=== PATIENT | female | born 1960 | race Caucasian/White ===

== ENCOUNTER → 2020-02-19 11:56 | Outpatient (BNVA) | payer MEDICAID, SELFPAY | PROVIDERS: Family Provider Internal Medicine; PCP Internal Medicine; Visit Provider Family Medicine | DX: J30.9 Allergic rhinitis, unspecified (principal); J44.9 Chronic obstructive pulmonary disease, unspecified; K21.9 Gastro-esophageal reflux disease without esophagitis; E11.9 Type 2 diabetes mellitus without complications; F31.30 Bipolar disorder, current episode depressed, mild or moderate severity, unspecified; I11.0 Hypertensive heart disease with heart failure; I50.9 Heart failure, unspecified; Z86.73 Personal history of transient ischemic attack (TIA), and cerebral infarction without residual deficits; G47.00 Insomnia, unspecified; I25.10 Atherosclerotic heart disease of native coronary artery without angina pectoris; G89.4 Chronic pain syndrome; Z87.81 Personal history of (healed) traumatic fracture; M25.552 Pain in left hip | CPT/HCPCS: 80053; 80061; 83036; 85025 ==

== ENCOUNTER → 2020-02-24 08:56 | Outpatient (BNVA) | payer MEDICAID, SELFPAY | PROVIDERS: Family Provider Internal Medicine; PCP Family Medicine; Referring Provider Family Medicine; Visit Provider Anesthesiology Pain Medicine | DX: G89.4 Chronic pain syndrome (principal); M54.9 Dorsalgia, unspecified; M25.552 Pain in left hip; F41.9 Anxiety disorder, unspecified; F31.31 Bipolar disorder, current episode depressed, mild; F17.210 Nicotine dependence, cigarettes, uncomplicated | CPT/HCPCS: 99203; 99204 ==

== ENCOUNTER → 2020-03-18 10:47 | Outpatient (BNVA) | payer MEDICAID, SELFPAY | PROVIDERS: Family Provider Internal Medicine; PCP Family Medicine; Visit Provider Emergency Medicine | DX: R05 Cough (principal); R06.02 Shortness of breath; J44.1 Chronic obstructive pulmonary disease with (acute) exacerbation | CPT/HCPCS: 71046; 80048; 83880; 85025 ==

== ENCOUNTER → 2020-04-22 09:35 | Outpatient (BNVA) | payer MEDICAID, SELFPAY | PROVIDERS: Family Provider Internal Medicine; PCP Family Medicine; Visit Provider Family Medicine | DX: N39.0 Urinary tract infection, site not specified (principal); E11.59 Type 2 diabetes mellitus with other circulatory complications; Z79.4 Long term (current) use of insulin; F32.9 Major depressive disorder, single episode, unspecified; I10 Essential (primary) hypertension; B37.9 Candidiasis, unspecified; B00.9 Herpesviral infection, unspecified; M54.9 Dorsalgia, unspecified; R30.0 Dysuria; M62.830 Muscle spasm of back | CPT/HCPCS: 80053; 81000; 83036 ==

== ENCOUNTER → 2020-04-24 09:33 | Outpatient (BNVA) | payer MEDICAID, SELFPAY | PROVIDERS: Family Provider Internal Medicine; PCP Family Medicine; Referring Provider Family Medicine; Visit Provider Orthopaedic Surgery | DX: M25.552 Pain in left hip (principal) | CPT/HCPCS: 73502 ==

== ENCOUNTER 2020-05-06 10:23 | Outpatient (CLI) | payer MEDICAID, SELFPAY ==
--- NOTE | 2020-05-06 | MR_ITS ---
Jessie Beach 1960 MRI LEFT HIP NONCONTRAST TECHNIQUE: Axial T1, axial T2 fat sat, coronal T1, coronal STIR, sagittal T2 fat sat, sagittal T1, and sagittal T2 fat sat, of both hips. CLINICAL INFORMATION: Left hip pain COMPARISON: Radiograph April 24, 2020, MRI March 16, 2017 FINDINGS: Mild degenerative arthritis both hips with joint space narrowing. No significant edema in the left femoral head or acetabulum. No evidence of avascular necrosis. Normal greater trochanter. Proximal femoral shafts are normal in appearance bilaterally. Normal bone marrow signal in the lower lumbar spine and sacrum. Visualized sacroiliac joints are normal. Normal pubic rami. Normal visualized soft tissues. Normal partially visualized rectosigmoid colon. No inguinal lymphadenopathy. Postoperative changes fusion hardware lower lumbar spine. IMPRESSION: 1. Mild degenerative arthritis both hips with joint space narrowing. No evidence of avascular necrosis or edema in the left femoral head or neck. 2. Left hip is otherwise normal in appearance. 3. Normal bone marrow signal in the lower lumbar spine and sacrum. 4. Normal pubic rami. [facility]
== END 2020-05-06 10:24 | disposition home or self-care (01) ==
LOC: RADWPI 10:26
PROVIDERS: Family Provider Family Medicine; PCP Family Medicine; Visit Provider Orthopaedic Surgery
DX: M25.552 Pain in left hip (principal); M16.0 Bilateral primary osteoarthritis of hip
CPT/HCPCS: 73721

== ENCOUNTER → 2020-05-07 09:40 | Outpatient (BNVA) | payer MEDICAID, SELFPAY | PROVIDERS: Family Provider Family Medicine; PCP Family Medicine; Visit Provider Anesthesiology Pain Medicine | DX: M54.9 Dorsalgia, unspecified (principal); M25.552 Pain in left hip; F17.210 Nicotine dependence, cigarettes, uncomplicated | CPT/HCPCS: 99213 ==

== ENCOUNTER → 2020-06-05 12:52 | Outpatient (BNVA) | payer MEDICAID, SELFPAY | PROVIDERS: Family Provider Family Medicine; PCP Family Medicine; Visit Provider Anesthesiology Pain Medicine | DX: G89.29 Other chronic pain (principal); M25.561 Pain in right knee; M25.562 Pain in left knee; M25.552 Pain in left hip; M54.9 Dorsalgia, unspecified; F17.210 Nicotine dependence, cigarettes, uncomplicated; Z79.891 Long term (current) use of opiate analgesic | CPT/HCPCS: 20610; 77002; 99213; J1030; J3490 ==

== ENCOUNTER → 2020-06-30 12:01 | Outpatient (BNVA) | payer MEDICAID, SELFPAY | PROVIDERS: Family Provider Family Medicine; PCP Family Medicine; Visit Provider Nurse Practitioner Family | DX: J04.0 Acute laryngitis (principal); G89.4 Chronic pain syndrome; W19.XXXA Unspecified fall, initial encounter; J32.9 Chronic sinusitis, unspecified; M25.571 Pain in right ankle and joints of right foot; R07.81 Pleurodynia | CPT/HCPCS: 73610 ==

== ENCOUNTER → 2020-07-17 15:06 | Outpatient (BNVA) | payer MEDICAID, SELFPAY | PROVIDERS: Family Provider Family Medicine; PCP Family Medicine; Visit Provider Nurse Practitioner Family | DX: B37.9 Candidiasis, unspecified (principal); R39.9 Unspecified symptoms and signs involving the genitourinary system | CPT/HCPCS: 81000 ==

== ENCOUNTER 2020-09-07 12:51 | Emergency (ER) | payer MEDICAID, SELFPAY ==
[2020-09-07 13:01] VITALS: BP 112/72; PULSE 92; RESP 16; TEMP 36.9; O2SAT 98; BMI 25.8
--- NOTE | 2020-09-07 13:01 | XRR_ITS ---
PROCEDURE INFORMATION: Exam: XR Left Foot Complete Exam date and time: 09/07/2020 1:18 PM Age: 60 years old Clinical indication: Prior surgery; Surgery type: Left ankle; Patient HX: Pain top lateral left foot, pain with walking; Additional info: Left foot pain TECHNIQUE: Imaging protocol: XR Left foot. Views: 3 or more views. COMPARISON: No relevant prior studies available. FINDINGS: Bones/joints: There is an oblique comminuted fracture distal shaft of the 3rd metatarsal. No additional bony abnormality is seen Soft tissues: Unremarkable XR/XR foot LT min 3V* [id number] IMPRESSION: 1. Comminuted oblique fracture distal shaft of the 3rd metatarsal. 2. Otherwise negative examination
--- NOTE | 2020-09-07 13:08 | ED_ITS ---
HPI - Extremity Injury (Lower) General: Chief Complaint: Extremity Injury, Lower Stated Complaint: L FOOT PAIN Time Seen by Provider: 09/07/20 13:02 History of Present Illness: HPI Narrative: 60-year-old female patient presents to the emergency department with 24-hour onset of left foot pain. She reports was walking up the stairs when she stepped wrong causing left foot pain. She reports pain across the top of her foot. History of left foot fracture in the past. She denies fall or further injuries. MD complaint: foot injury (Left) Onset (ago): day(s) (1) Injury: Left: foot Type of Injury: unknown Place: home Severity: moderate Relieving factors: rest Exacerbating factors: weight bearing and movement Context: walking Associated symptoms: Reports inability to bear weight and swelling Other symptoms: none Review of Systems General: Reports: 10 or more systems reviewed and unremarkable except in HPI and below Const: Denies: fever(s), chills or diaphoresis Eyes: Denies: blurry vision or eye redness ENMT: Denies: throat pain, dental pain or disequilibrium Card: Denies: chest pain, palpitations or irregular heart rhythm Resp: Denies: dyspnea, productive cough, non-productive cough or wheezing GI: Denies: abdominal pain, nausea or vomiting : Denies: difficulty voiding or dysuria Musc: Reports: extremity pain (left foot) and extremity swelling (left foot); Denies: neck pain or back pain Skin/Breast: Denies: rash or pruritus Neuro: Denies: headache(s), weakness in extremities or behavioral changes Daniel/Lymph: Denies: easy bruising PFS ED PFSH: Medical History (Updated 09/07/20 @ 14:25 by JUAN DIEGO Ng) Acute exacerbation of chronic obstructive pulmonary disease Acute generalized abdominal pain Allergic rhinitis Anxiety Bipolar affect, depressed CAD (coronary artery disease) s/p stent x2 CHF (congestive heart failure) COPD (chronic obstructive pulmonary disease) Depression GERD (gastroesophageal reflux disease) Herpes infection Hip pain History of CVA (cerebrovascular accident) Hx MRSA infection Hx of colonic polyp Hx of fracture Hx of hepatitis C s/p tx 2011 Hx of multiple pulmonary nodules Hypertension Insomnia 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 Osteoarthritis Osteoporosis Pain management contract signed Type 2 diabetes mellitus Surgical History H/O shoulder surgery H/O wrist surgery H/O: hysterectomy History of ankle surgery History of appendectomy History of cholecystectomy Previous back surgery Family History Father CAD (coronary artery disease) Diabetes Mother CAD (coronary artery disease) Family/Other CAD (coronary artery disease) Diabetes Social History Smoking and tobacco status: current every day smoker cigarettes Packs smoked per day: 1 Alcohol intake: never Female Reproductive History: Spontaneous abortions: No Physical Exam Const: COMMON NORMALS: no acute distress, patient oriented x3, healthy appe aring and alert GENERAL APPEARANCE: cooperative, comfortable and well hydrated HENMT: COMMON NORMALS: normocephalic, Normal external nose present and moist oral mucous membranes HEAD & SCALP: normocephalic NOSE: Normal external nose present Eye: COMMON NORMALS: Equal, round and reactive pupils present and EOMs intact bilaterally GENERAL EYE: appearance normal, both eyes and all related structures PUPIL: Yes Equal, round and reactive pupils present Neck/C-Spine: COMMON NORMALS: full ROM and no lymphadenopathy GENERAL: Yes normal visual inspection and Yes trachea midline CERVICAL SPINE: Yes cervical ROM normal Lymph: LYMPHATIC: no lymphadenopathy noted Chest: COMMONS NORMALS: normal inspection of the chest Resp: COMMON NORMALS: normal respiratory effort and clear to auscultation albino aterally AUSCULTATION: clear to auscultation bilaterally Cardio: COMMON NORMALS: regular rhythm, S1 normal heart sound present and S2 normal heart sound present RHYTHM: regular rhythm HEART SOUNDS: S1 normal heart sound present and S2 normal heart sound present GI: COMMON NORMALS: Soft to palpation and non-tender INSPECTION: Yes normal to inspection PALPATION: Yes Soft to palpation : COMMON NORMALS: Yes no CVA tenderness BLADDER/KIDNEY EXAM: Yes no CVA tenderness Back/Pelvis: COMMON NORMALS: no CVA tenderness and thoracic and lumbar spine normal to inspection Extremity: COMMON NORMALS: normal to inspection and capillary refill normal GENERAL: Yes normal exam except as noted LEFT LOWER EXTREMITY: Yes foot & digits Left foot and digits: Yes inspection (Slight swelling of the dorsum of the left foot, ecchymosis noted to the distal dorsal 1/3 foot. No ecchymosis over the toes.), Yes palpation (Pain to the distal MTPs, bony tenderness), Yes ROM (Dorsiflexion/extension noted of the left ankle. [place] ankle rules unable to rule out ankle fracture due to patient's inability to stand secondary to pain to the ankle and foot) and Yes neurovascular exam (Distally intact) Neuro: COMMON NORMALS: patient oriented x3 and no focal motor deficits SENSORIUM/ORIENTATION: Yes alert Psych: COMMON NORMALS: mental status grossly normal, Normal thought process present and cooperative ACTIVITY/MOTOR BEHAVIOR: Yes appropriate eye contact THOUGHT PROCESS: Normal thought process present Skin: COMMON NORMALS: no rashes or lesions noted and turgor normal GENERAL SKIN EXAM: no rashes or lesions noted and turgor normal Course Vital Signs: Vital signs: Vital Signs Temperature 98.4 F 09/07/20 13:01 Pulse Rate 92 09/07/20 13:01 Respiratory Rate 16 09/07/20 13:01 Blood Pressure 112/72 09/07/20 13:01 Pulse Oximetry 98 09/07/20 13:01 MDM - Extremity Injury (Lower) Imaging Data^: Other Xray: Radiologist's impression: [address] [address] XRay Report Signed Patient: Jessie Beach Unit #: [id number] : 1960 Age/Sex: 60 / F ADM Date: 0 Loc: ER Room/Bed: Attending Dr: Ordering Provider/Ordering MD: Sammi Lilly Date of Service: 09/07/20 Procedure(s): XR ankle LT min 3V* [id number] Accession Number(s): [id number] Report Number: [id number] WS: [id number] LEFT ANKLE: 3 VIEW(S) TECHNIQUE: AP, oblique(s) and lateral. HISTORY: unable to stand - left ankle pain COMPARISON: 08/24/2011 No ankle fracture identified. There is very slight change in the trabecular pattern of the distal fibula which may be related to an old injury. There is an acute nondisplaced fracture involving the distal third metatarsal. No joint effusion or widening of the ankle mortise. Mild degenerative joint space narrowing at the ankle. No soft tissue abnormality. XR/XR ankle LT min 3V* [id number] IMPRESSION: 1. Nondisplaced oblique fracture distal third metatarsal. 2. No ankle fracture. Dictated By: Nikky Rivers DO Signed By: Nikky Rivers DO Signed Date/Time: 09/07 1401 DD/ 1359 Discharge Plan Discharge Patient Disposition: Home Clinical Impression: Fracture of metatarsal bone of left foot Qualifiers: Encounter type: initial encounter Metatarsal bone: third Fracture type: closed Fracture alignment: nondisplaced Qualified Code(s): S92.335A - Nondisplaced fracture of third metatarsal bone, left foot, initial encounter for closed fracture Condition: Stable Prescriptions: No Action nitroglycerin 0.4 mg tablet, sublingual 0.4 mg SUBLINGUAL Q5M PRNRF: 0 atorvastatin 80 mg tablet 80 mg PO DAILY 30 Days Qty: 30 RF: 11 duloxetine [Cymbalta] 60 mg capsule,delayed release(DR/EC) 60 mg PO DAILY 30 Days Qty: 30 RF: 2 lisinopril 5 mg tablet 5 mg PO DAILY 30 Days Qty: 30 RF: 2 Symbicort 160-4.5 mcg/actuation HFA aerosol inhaler 2 puff INHALATION BID 30 Days Qty: 10.2 RF: 2 Combivent Respimat 20-100 mcg/actuation mist 1 puff INHALATION Q4H 30 Days Qty: 4 RF: 2 Victoza 2-Afshin 0.6 mg/0.1 mL (18 mg/3 mL) pen injector 1.8 mg SUBCUT DAILY 30 Days Qty: 6 RF: 2 insulin glargine 100 unit/mL (3 mL) insulin pen 50 unit SUBCUT DAILY 30 Days Qty: 15 RF: 2 furosemide [Lasix] 20 mg tablet 20 mg PO DAILY 30 Days Qty: 30 RF: 2 amitriptyline 75 mg tablet See Rx Instructions .ROUTE .COMPLEX Qty: 30 RF: 2 methylprednisolone acetate [Depo-Medrol] 40 mg/mL suspension 40 mg INTRA-NAVNEET ONCE Qty: 1 RF: 0 bupivacaine (PF) 0.25 % (2.5 mg/mL) solution 2.5 mg INTRA-NAVNEET ONCE Qty: 1 RF: 0 lidocaine (PF) 10 mg/mL (1 %) solution 10 mg INTRA-NAVNEET ONCE Qty: 1 RF: 0 gabapentin 800 mg tablet 800 mg PO TID MDD 2 Qty: 60 RF: 0 hydroxyzine HCl 25 mg tablet 25 mg PO Q8H Qty: 60 RF: 0 prednisone 20 mg tablet 20 mg PO DAILY 3 Days Qty: 3 RF: 0 silver sulfadiazine [Silvadene] 1 % cream 1 applic TOPICAL BID Qty: 50 RF: 1 tramadol 50 mg tablet 50 mg PO Q8H PRN (Reason: pain) Qty: 30 RF: 0 loratadine 10 mg tablet 10 mg PO DAILY 30 Days Qty: 30 RF: 5 mometasone [Nasonex] 50 mcg/actuation spray,non-aerosol 2 spray INTRANASAL .twice daily PRN (Reason: nasal congestion) 30 Days Qty: 17 RF: 5 metformin 1,000 mg tablet See Rx Instructions .ROUTE .COMPLEX Qty: 60 RF: 0 ipratropium bromide 42 mcg (0.06 %) spray,non-aerosol See Rx Instructions .ROUTE .COMPLEX Qty: 15 RF: 5 cyclobenzaprine 10 mg tablet See Rx Instructions .ROUTE .COMPLEX Qty: 90 RF: 0 (DME) pen needle, diabetic [TechLITE Pen Needle] 32 gauge x 1/4 needle See Rx Instructions .ROUTE .MEDSUPPLY Qty: 50 RF: 0 pantoprazole 40 mg tablet,delayed release (DR/EC) See Rx Instructions .ROUTE .COMPLEX Qty: 60 RF: 0 quetiapine 400 mg tablet See Rx Instructions .ROUTE .COMPLEX Qty: 30 RF: 0 guaifenesin [Mucinex] 600 mg tablet extended release 12hr See Rx Instructions .ROUTE .COMPLEX Qty: 60 RF: 4 Discharge Orders: Discharge Order (Routine); Ordered 09/07/20 Ordered By: Sammi Lilly Referrals: Maday Rodriguez DO [Primary Care Provider] - Discharge Diet: Diabetic Discharge Activity: Limit activity as instructed Patient Instructions: Foot Fracture in Adults (ED) Activity Restrictions/Additional Instructions: Referral to Dr. Ruggiero is currently pending, you will be contacted by social media developer with an appointment for follow-up date and time Keep postop shoe on while ambulating. Keep pressure off the left foot to help with pain, utilize crutches at home, wheelchair at home or a walker to help limit pressure to the area. Apply cool compresses as needed for pain, keep the left foot elevated to help with swelling Return to the emergency department if you develop redness swelling to the left calf or left lower leg. Do not go barefooted. Shoes help with bone support. Continue tramadol/Tylenol as needed for pain Discharge Date/Time: 09/07/20 15:11 Coding Level of Care Code ED Wharf Laborer for Tolu Langford Exam Comprehensive
--- NOTE | 2020-09-07 13:12 | XR_ITS ---
WS: [id number] LEFT ANKLE: 3 VIEW(S) TECHNIQUE: AP, oblique(s) and lateral. HISTORY: unable to stand - left ankle pain COMPARISON: 08/24/2011 No ankle fracture identified. There is very slight change in the trabecular pattern of the distal fib to which may be related to an old injury. There is an acute nondisplaced fracture involving the dist al third metatarsal. No joint effusion or widening of the ankle mortise. Mild degenerative joint space narrowing at the ankle. No soft tissue abnormality. XR/XR ankle LT min 3V* [id number] IMPRESSION: 1. Nondisplaced oblique fracture distal third metatarsal. 2. No ankle fracture.
--- NOTE | 2020-09-07 16:52 | DCPLANNER ---
automation engineering manager was asked to schedule a follow up appointment for patient with ortho. automation engineering manager called the ortho clinic, spoke with Carmen, gave clinic patients information. automation engineering manager was told that patients information would be printed and reviewed. Clinic will call patient with appointment information.
--- NOTE | 2020-09-08 10:13 | DCPLANNER ---
Patient has a follow up appointment scheduled for August at 11:[address] Traore at ortho. Clinic will call patient with appointment information.
--- NOTE | 2020-09-18 18:02 | DCPLANNER ---
Patient had a follow up appointment scheduled for 09.10.20 with ortho - patient did not attend appointment.
== END 2020-09-07 15:11 | disposition home or self-care (01) ==
PROVIDERS: Emergency Provider Nurse Practitioner Family; PCP Family Medicine
DX: S92.335A Nondisplaced fracture of third metatarsal bone, left foot, initial encounter for closed fracture (principal); Z79.899 Other long term (current) drug therapy; F17.210 Nicotine dependence, cigarettes, uncomplicated; J44.9 Chronic obstructive pulmonary disease, unspecified; I25.10 Atherosclerotic heart disease of native coronary artery without angina pectoris; I11.0 Hypertensive heart disease with heart failure; I50.9 Heart failure, unspecified; Z86.73 Personal history of transient ischemic attack (TIA), and cerebral infarction without residual deficits; Z86.19 Personal history of other infectious and parasitic diseases; E11.9 Type 2 diabetes mellitus without complications; X58.XXXA Exposure to other specified factors, initial encounter
CPT/HCPCS: 12345; 73610; 73630; 99281; 99283

== ENCOUNTER → 2020-10-21 12:39 | Outpatient (BNVA) | payer MEDICAID, SELFPAY | PROVIDERS: PCP Family Medicine; Visit Provider Emergency Medicine | DX: M25.511 Pain in right shoulder (principal); M79.672 Pain in left foot; M25.531 Pain in right wrist; M79.642 Pain in left hand | CPT/HCPCS: 73110; 73130; 73620 ==

== ENCOUNTER → 2020-11-12 10:43 | Outpatient (BNVA) | payer MEDICAID, SELFPAY | PROVIDERS: PCP Family Medicine; Visit Provider Family Medicine | DX: J41.0 Simple chronic bronchitis (principal); Z87.898 Personal history of other specified conditions; R39.89 Other symptoms and signs involving the genitourinary system; B37.3 Candidiasis of vulva and vagina; E11.59 Type 2 diabetes mellitus with other circulatory complications; Z79.4 Long term (current) use of insulin; E11.9 Type 2 diabetes mellitus without complications; R30.0 Dysuria; G47.00 Insomnia, unspecified; F32.9 Major depressive disorder, single episode, unspecified; M25.559 Pain in unspecified hip; F33.0 Major depressive disorder, recurrent, mild; F41.9 Anxiety disorder, unspecified; M62.830 Muscle spasm of back | CPT/HCPCS: 80053; 81000; 83036; 87086 ==

== ENCOUNTER → 2021-05-26 13:12 | Outpatient (BNVA) | payer MEDICAID, SELFPAY | PROVIDERS: PCP Family Medicine; Referring Provider Family Medicine; Visit Provider Specialist | DX: M25.511 Pain in right shoulder (principal); Z98.890 Other specified postprocedural states | CPT/HCPCS: 73030 ==

== ENCOUNTER 2021-06-28 09:09 | Outpatient (CLI) | payer MEDICAID, SELFPAY ==
--- NOTE | 2021-06-28 09:30 | MR_ITS ---
WS: [id number] MRI RIGHT SHOULDER NONCONTRAST TECHNIQUE: Axial T2, sagittal T2, coronal PD imaging. Incomplete examination. Patient difficulty hold ing still. CLINICAL INFORMATION: M25.519 - Pain in unspecified shoulder COMPARISON: None. FINDINGS: Prior postoperative changes resection of the distal clavicle with acromioplasty. 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 This measures approximately 6.1 x 3.4 x 4.9 CM. Postopera tive changes rotator cuff anchors are new from the prior examination. Susceptibility artifact degrade s some images. Distal supraspinatus appears intact with prior repair. Normal infraspinatus. Normal teres minor. Subs capularis appears normal. Normal biceps tendon in the bicipital groove. Normal biceps labral anchor. Degenerative fraying glenoid labrum similar to previous. Normal bone marrow signal in the humeral hea d and glenoid. No acute appearing humeral head or proximal humeral shaft fractures. MR/MR shoulder RT wo con* [id number] IMPRESSION: 1. Prior postoperative changes resection of the distal clavicle with acromiopl asty. 2. Interval rotator cuff repair compared to the prior MRI. No evidence of recu rrent tear. Distal supraspinatus and infraspinatus appear intact. 3. Rotator cuff is otherwise normal in appearance. 4. Normal biceps tendon in the bicipital groove. Normal biceps labral anchor. 5. Degenerative fraying glenoid labrum similar to previous. 6. Normal bone marrow signal in the humeral head and neck. No acute fractures. 7. 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
== END 2021-06-28 09:10 | disposition home or self-care (01) ==
LOC: RADSHAW 09:11
PROVIDERS: PCP Family Medicine; Visit Provider Specialist
DX: M25.511 Pain in right shoulder (principal); D17.9 Benign lipomatous neoplasm, unspecified
CPT/HCPCS: 73221

== ENCOUNTER 2021-06-28 10:41 | Emergency (ER) | payer MEDICAID, SELFPAY ==
[2021-06-28 11:36] VITALS: BP 102/47; PULSE 88; RESP 18; TEMP 36.2; O2SAT 95; BMI 25.5
--- NOTE | 2021-06-28 11:45 | ED_ITS ---
HPI - Extremity Problem General: Chief complaint: General Medical Stated complaint: L Shoulder Pain Time Seen by Provider: 06/28/21 11:45 Source: patient Mode of arrival: wheelchair Limitations: no limitations History of Present Illness: HPI Narrative: Patient is a 60-year-old female here for multiple areas of pain. She is complaining of pain to her right shoulder. She has had previous rotator cuff surgery to the shoulder. She has seen Dr. Traore for this complaint and had an MRI performed today. She has a complaint of left foot and ankle pain that she knows is broken . She tells me she has a history of osteoporosis and has had 17 broken bones below the knee. She states she twisted the ankle last night. She has a complaint of lower back pain. The more I speak to patient, the more areas of pain she complains about. Complaint: extremity pain Pain Consistency: constant Relieving factors: nothing Exacerbating factors: nothing Associated symptoms: Reports no associated symptoms; Deny chest pain or fever(s) Review of Systems Const: Denies: fever(s), chills, body aches, fatigue or malaise Card: Denies: chest pain Resp: Denies: dyspnea Musc: Reports: neck pain, back pain, extremity pain and joint pain Neuro: Denies: numbness in extremities, weakness in extremities or sensory changes PFSH ED PFSH: Medical History Acute exacerbation of chronic obstructive pulmonary disease Acute generalized abdominal pain Allergic rhinitis Anxiety Bipolar affect, depressed CAD (coronary artery disease) s/p stent x2 CHF (congestive heart failure) COPD (chronic obstructive pulmonary disease) Depression GERD (gastroesophageal reflux disease) Herpes infection Hip pain History of CVA (cerebrovascular accident) Hx MRSA infection Hx of colonic polyp Hx of fracture Hx of hepatitis C s/p tx 2011 Hx of multiple pulmonary nodules Hypertension Insomnia assisted (current) use of opiate analgesic Osteoarthritis Osteoporosis Pain management contract signed Type 2 diabetes mellitus Surgical History H/O shoulder surgery H/O wrist surgery H/O: hysterectomy History of ankle surgery History of appendectomy History of cholecystectomy Previous back surgery Family History Father CAD (coronary artery disease) Diabetes Mother CAD (coronary artery disease) Family/Other CAD (coronary artery disease) Diabetes Social History Alcohol intake: never Female Reproductive History: Spontaneous abortions: No Physical Exam Const: COMMON NORMALS: no acute distress, patient oriented x3, no limitations and alert NUTRITIONAL APPEARANCE: overweight ORIENTATION/CONSCIOUSNESS: Yes awake, Yes oriented to person, Yes oriented to place and Yes oriented to time HENMT: COMMON NORMALS: normocephalic and atraumatic HEAD & SCALP: normocephalic and atraumatic Neck/C-Spine: COMMON NORMALS: full ROM CERVICAL SPINE: Yes pain with cervical ROM, Yes Cervical spine tenderness and Yes Paracervical muscle tenderness OTHER: reports pain throughout c spine-she has had no recent injury/trauma here Resp: COMMON NORMALS: normal respiratory effort Back/Pelvis: LUMBAR SPINE/LOWER BACK: Yes ROM limited, Yes lumbar spinal tenderness and Yes paraspinal muscle tenderness SACROILIAC JOINTS: Yes SI joint(s) abnormal OTHER: reports pain throughout lumbar spine-states she fell recently Extremity: NARRATIVE EXTREMITY EXAM: reports pain so bad to R shoulder that she cannot even move it but when she is distracted talking about her other areas of pain she is moving the shoulder so much that she was able to get it completely out of her sling she was wearing and almost raises shoulder above her head at one point reports pain throughout her L foot and ankle; hardly tolerates even light palpation; she cannot give me any direction as to area in which hurts the most just repeatedly tells me it is broke GENERAL: Yes normal exam except as noted Neuro: RUI COMA SCALE: document GCS findings [place] coma scale eye open ing: Spontaneous Rui coma scale verbal response: Orientated Rui coma scale motor response: Obey commands [place] coma scale total score: 15 COMMON NORMALS: patient oriented x3, moves all extremities, no focal motor deficits and no sensory deficits noted SENSORIUM/ORIENTATION: Yes alert, Yes oriented to person, Yes oriented to place and Yes oriented to time Skin: COMMON NORMALS: no rashes or lesions noted GENERAL SKIN EXAM: no rashes or lesions noted TRAUMA: no lacerations or abrasions Course Vital Signs: Vital signs: Vital Signs Temperature 97.1 F L 06/28/21 11:36 Pulse Rate 88 06/28/21 11:36 Respiratory Rate 18 06/28/21 11:36 Blood Pressure 102/47 06/28/21 11:36 Pulse Oximetry 95 06/28/21 11:36 MDM - Extremity (Nontraumatic) MDM Narrative: Medical decision making narrative: Patient is not a very good historian and she has multiple complaints of multiple areas of pain. She is exhibiting psychomotor agitation. She is constantly requesting pain medications for at least 6 different areas of pain. I do not know of any history of drug use but I do suspect this. MRI of her shoulder was reviewed. Recommend follow up with orthopedics for this. XRs here show possible avulsion fx to talus. She has a CAM boot she states she will start wearing-will followup with the [facility] in [place]. Patient has seen multiple providers for multiple complaints of pain. I do not feel comfortable writing her for narcotics from the ED. She requests flexeril for her back spams which I agreed to. Imaging Data^: XR L foot: Radiologist's impression: [address] [address] XRay Report Signed Patient: Jessie Beach Unit #: [id number] : 1960 Age/Sex: 60 / F ADM Date: 06/28/21 Loc: ER Room/Bed: Attending Dr: Ordering Provider/Ordering MD: Whit Holbrook Date of Service: 06/28/21 Procedure(s): XR foot LT min 3V* 41693 Accession Number(s): [id number] Report Number: [id number] WS: [id number] Left foot, 3 views, 06/28/2021 Clinical Data: injury Comparison: None. Findings: No dislocations are seen. There is an erosion of the distal aspect of the left second toe proximal phalanx. The joint spaces and soft tissues are normal. There is a possible small fragment of the anterior aspect of the talus seen only on the lateral view. XR/XR foot LT min 3V* 06179 Impression: 1. Small fragment at the anterior aspect of the talus which could represent a small avulsion fracture. 2. Erosion of the distal aspect of the left second toe proximal phalanx. Dictated By: Soledad Woodruff MD Signed By: Soledad Woodruff MD Signed Date/Time: 06/28/21 1253 DD/ 1250 XR L ankle : Radiologist's impression: [employer] [address] [place] [address]. [place] [address] XRay Report Signed Patient: Jessie Beach Unit #: [id number] : 1960 Age/Sex: 60 / F ADM Date: 0 06/28/21 Loc: ER Room/Bed: Attending Dr: Ordering Provider/Ordering MD: Whit Holbrook Date of Service: 06/28/21 Procedure(s): XR ankle LT min 3V* 51740 Accession Number(s): [id number] Report Number: [id number] WS: [id number] Left ankle, 3 views, 06/28/2021 Clinical Data: injury Comparison: None. Findings: No fractures or dislocations are seen. The ankle mortise is normal. The talus and calcaneus are unremarkable. No soft tissue swelling over the medial or lateral malleolus is seen. XR/XR ankle LT min 3V* 04196 Impression: Negative left ankle. Dictated By: Soledad Woodruff MD Signed By: Soledad Woodruff MD Signed Date/Time: 06/28/21 1250 DD/ 1249 XR lumbar: Radiologist's impression: [employer] [address] [place] [address]. [place] [address] XRay Report Signed Patient: Jessie Beach Unit #: [id number] : 1960 Age/Sex: 60 / F ADM Date: 06/28/21 Loc: ER Room/Bed: Attending Dr: Ordering Provider/Ordering MD: Whit Holbrook Date of Service: 06/28/21 Procedure(s): XR lumbar spine 2-3V* 03631 Accession Number(s): [id number] Report Number: [id number] WS: [id number] Lumbar spine, 3 views, 06/28/2021 Clinical Data: fall/pain Comparison: None. Findings: No compression fractures or subluxation is seen. There is degenerative disc narrowing at L5-S1.. The transverse processes and SI joints are normal. Minimal anterior osteophytes are seen from L1 through L4. The patient's had a posterior lumbar fusion at L4-L5 with bilateral pedicle screws and connecting rods. There are epidural stimulator wires extending into the posterior aspect of the L3 and L4 vertebral levels. There is calcification in the wall of the abdominal aorta but no aneurysm. There are clips from a cholecystectomy in the right upper quadrant. There is a large amount of fecal material in the colon. XR/XR lumbar spine 2-3V* 40507 Impression: 1. Negative for compression fracture. 2. Intact posterior L4-L5 fusion Dictated By: Soledad Woodruff MD Signed By: Soledad Woodruff MD Signed Date/Time: 06/28/21 124 DD/ 1245 Discharge Plan Discharge Patient Disposition: Home Clinical Impression: Avulsion fracture of left talus, Chronic pain Condition: Stable Prescriptions: Continued cyclobenzaprine 10 mg tablet See Rx Instructions .ROUTE .COMPLEX Qty: 20 RF: 0 No Action nitroglycerin 0.4 mg tablet, sublingual 0.4 mg SUBLINGUAL Q5M PRNRF: 0 atorvastatin 80 mg tablet 80 mg PO DAILY 30 Days Qty: 30 RF: 11 lisinopril 5 mg tablet 5 mg PO DAILY 30 Days Qty: 30 RF: 2 Combivent Respimat 20-100 mcg/actuation mist 1 puff INHALATION Q4H 30 Days Qty: 4 RF: 2 Victoza 2-Afshin 0.6 mg/0.1 mL (18 mg/3 mL) pen injector 1.8 mg SUBCUT DAILY 30 Days Qty: 6 RF: 2 insulin glargine 100 unit/mL (3 mL) insulin pen 50 unit SUBCUT DAILY 30 Days Qty: 15 RF: 2 furosemide [Lasix] 20 mg tablet 20 mg PO DAILY 30 Days Qty: 30 RF: 2 hydroxyzine HCl 25 mg tablet 25 mg PO Q8H Qty: 60 RF: 0 prednisone 20 mg tablet 40 mg PO DAILY 5 Days Qty: 10 RF: 0 mometasone [Nasonex] 50 mcg/actuation spray,non-aerosol 2 spray INTRANASAL .twice daily PRN (Reason: nasal congestion) 30 Days Qty: 17 RF: 5 fluticasone propion-salmeterol [Advair Diskus] 250-50 mcg/dose blister with device 1 inh inhalation BID Qty: 60 RF: 2 duloxetine [Cymbalta] 60 mg capsule,delayed release(DR/EC) 60 mg PO DAILY 30 Days Qty: 30 RF: 2 gabapentin 800 mg tablet 800 mg PO TID MDD 3 30 Days Qty: 90 RF: 2 tramadol 50 mg tablet 50 mg PO DAILY RF: 0 cephalexin 500 mg capsule 500 mg PO TID 7 Days Qty: 21 RF: 0 metformin 1,000 mg tablet See Rx Instructions .ROUTE .COMPLEX Qty: 60 RF: 0 ipratropium bromide 42 mcg (0.06 %) spray,non-aerosol See Rx Instructions .ROUTE .COMPLEX Qty: 15 RF: 5 (DME) pen needle, diabetic [TechLITE Pen Needle] 32 gauge x 1/4 needle See Rx Instructions .ROUTE .MEDSUPPLY Qty: 50 RF: 0 pantoprazole 40 mg tablet,delayed release (DR/EC) See Rx Instructions .ROUTE .COMPLEX Qty: 60 RF: 0 quetiapine 400 mg tablet See Rx Instructions .ROUTE .COMPLEX Qty: 30 RF: 0 guaifenesin [Mucinex] 600 mg tablet extended release 12hr See Rx Instructions .ROUTE .COMPLEX Qty: 60 RF: 4 amitriptyline 75 mg tablet See Rx Instructions .ROUTE .COMPLEX Qty: 30 RF: 2 loratadine [Allergy Relief (loratadine)] 10 mg tablet See Rx Instructions .ROUTE .COMPLEX Qty: 30 RF: 0 Discharge Orders: Discharge ED (Routine); Ordered 06/28/21 Ordered By: Whit Holbrook Referrals: Maday Rodriguez DO [Primary Care Provider] - Activity Restrictions/Additional Instructions: As we discussed please follow-up with Dr. Traore to go over the results of your shoulder MRI. Please begin wearing your CAM boot that you stated you had at home for your possible left foot fracture. As we discussed please follow-up with your provider at the [facility] in [place]. Coding Level of Care Code ED Manager [employer] for Chg Fwd Exam Comprehensive
--- NOTE | 2021-06-28 12:00 | XR_ITS ---
WS: [id number] Lumbar spine, 3 views, 06/28/2021 Clinical Data: fall/pain Comparison: None. Findings: No compression fractures or subluxation is seen. There is degenerative disc narrowing at L5-S1.. The transverse processes and SI joints are normal. Minimal anterior osteophytes are seen from L1 through L4. The patient's had a posterior lumbar fusion at L4-L5 with bilateral pedicle screws and connecting john s. There are epidural stimulator wires extending into the posterior aspect of the L3 and L4 vertebral levels. There is calcification in the wall of the abdominal aorta but no aneurysm. There are clips f rom a cholecystectomy in the right upper quadrant. There is a large amount of fecal material in the c olon. XR/XR lumbar spine 2-3V* 24272 Impression: 1. Negative for compression fracture. 2. Intact posterior L4-L5 fusion
--- NOTE | 2021-06-28 12:00 | XR_ITS ---
WS: [id number] Left ankle, 3 views, 06/28/2021 Clinical Data: injury Comparison: None. Findings: No fractures or dislocations are seen. The ankle mortise is normal. The talus and calcaneus are unrem arkable. No soft tissue swelling over the medial or lateral malleolus is seen. XR/XR ankle LT min 3V* 45643 Impression: Negative left ankle.
--- NOTE | 2021-06-28 12:00 | XR_ITS ---
WS: [id number] Left foot, 3 views, 06/28/2021 Clinical Data: injury Comparison: None. Findings: No dislocations are seen. There is an erosion of the distal aspect of the left second toe proximal ph alanx. The joint spaces and soft tissues are normal. There is a possible small fragment of the anterior aspect of the talus seen only on the lateral view. XR/XR foot LT min 3V* 77022 Impression: 1. Small fragment at the anterior aspect of the talus which could represent a s mall avulsion fracture. 2. Erosion of the distal aspect of the left second toe proximal phalanx.
== END 2021-06-28 13:16 | disposition home or self-care (01) ==
PROVIDERS: Emergency Provider Physician Assistant; PCP Family Medicine
DX: S92.152A Displaced avulsion fracture (chip fracture) of left talus, initial encounter for closed fracture (principal); G89.29 Other chronic pain; Z79.4 Long term (current) use of insulin; I25.10 Atherosclerotic heart disease of native coronary artery without angina pectoris; J44.9 Chronic obstructive pulmonary disease, unspecified; I11.0 Hypertensive heart disease with heart failure; I50.20 Unspecified systolic (congestive) heart failure; Z86.73 Personal history of transient ischemic attack (TIA), and cerebral infarction without residual deficits; Z86.19 Personal history of other infectious and parasitic diseases; E11.9 Type 2 diabetes mellitus without complications
CPT/HCPCS: 72100; 73610; 73630; 99282

== ENCOUNTER → 2021-08-14 14:43 | Outpatient (BNVA) | payer MEDICAID, SELFPAY | PROVIDERS: PCP Family Medicine; Visit Provider Nurse Practitioner Family | DX: M79.642 Pain in left hand (principal); J30.2 Other seasonal allergic rhinitis | CPT/HCPCS: 73130 ==

== ENCOUNTER → 2022-05-11 15:30 | Outpatient (BNVA) | payer MEDICAID, SELFPAY | PROVIDERS: PCP Family Medicine; Visit Provider Emergency Medicine | DX: M79.641 Pain in right hand (principal) | CPT/HCPCS: 73130 ==